=== PATIENT | male | born 1980 | race African-American/Black ===

== ENCOUNTER 2017-09-25 01:40 | Emergency (ER) | payer SELFPAY | END 2017-09-25 01:56 | disposition left against medical advice (07) | LOC: ER 01:43 | DX: Z53.21 Procedure and treatment not carried out due to patient leaving prior to being seen by health care provider (principal) ==

== ENCOUNTER 2019-05-06 12:32 | Emergency (ER) | payer MEDICARE, OTHER ==
[~2019-05-06] VITALS: Ht 180.3 cm; Wt 68.0 kg
--- NOTE | 2019-05-06 13:20 | NUR ---
HOSPITAL LUNCH TRAY PROVIDED FOR PT.
--- NOTE | 2019-05-06 15:14 | NUR ---
Patient given written and verbal discharge instructions. Patient verbalizes understanding of instructions. Patient is ambulatory with steady gait. Refuses offer of [facility] placement. Patient given list of available shelters and resources in surrounding area.
== END 2019-05-06 15:18 | disposition home or self-care (01) ==
LOC: ER 12:32
DX: B86 Scabies (principal); R42 Dizziness and giddiness; Z59.0 Homelessness
CPT/HCPCS: A4663